=== PATIENT | female | born 1930 | race Asian ===

== ENCOUNTER 2019-04-26 00:06 | Outpatient (CLI) | payer MEDICARE | END 2019-04-26 00:07 | disposition critical access hospital (66) | LOC: EMS 00:06 | PROVIDERS: ATTEND Surgery | DX: R56.9 Unspecified convulsions (principal) | CPT/HCPCS: A0425; A0429 ==

== ENCOUNTER 2019-04-26 00:28 | Emergency (ER) | payer MEDICARE ==
--- NOTE | 2019-04-26 00:36 | ED Physician Documentation ---
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 less than 1 hour ago, her grandson woke to strange noises from patient (patient is sleeping in same room as grandson), and grandson turned on light and found patient unconscious, eyes rolled back, and coordinated shaking of all limbs. this lasted approximately 30 seconds, followed by several minutes of unresponsiveness and appearance of being in deep sleep with sonorous respirations (per patients son who was now in room with patient). 911 called and by the time they arrived, patient had gradually returned to baseline level of consciousness. son says patient might have had slurred speech and left facial droop immediately after the seizure, but he isnt confident these were present, says it might have simply been due to positioning and lighting in the room. medics similarly report possibly seeing left facial droop or asymmetry, but unclear if it was truly present or due to positioning. 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 denies: Generalized weakness, Numbness, Headache PD PAST MEDICAL HISTORY - Past Medical History Past Medical History: No - Past Surgical History Past Surgical History: No - Allergies Allergies/Adverse Reactions: Allergies Allergy/AdvReac Type Severity Reaction Status Date / Time Unable to Assess Allergy Verified 04/26/19 00:38 - Social History Does the pt smoke?: No Does the pt drink ETOH?: No PD ED PE NORMAL - Vitals Vital signs reviewed: Yes - General General: Alert and oriented X 3, No acute distress, Well developed/nourished, Other (does not speak kiswahili; family translating with obvious fluency) - HEENT HEENT: Atraumatic, PERRL, EOMI, Moist mucous membranes, Pharynx benign (there is dried blood on lips without apparent source (no lip , tognue, or intraoral bite/abrasion visualized)), Other (right eye opacification s/o cataract. 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, No motor deficit (5/5 bilateral slabber, dorsi/plantarflexion, holds up each limb (independently tested) for 5 seconds (lower) and 10 seconds (upper) without drift), No sensory deficit, Normal speech Eye Opening: Spontaneous Motor: Obeys Commands Verbal: Oriented GCS Score: 15 - Psych Psych: Normal mood, Normal affect Results - Vitals Vitals: Oxygen O2 Source Room air - EKG (time done) No standard instances Rate: Rate (enter#) (81) Rhythm: NSR Brownell: LAD Intervals: Normal MI QRS: Normal Ischemia: Normal ST segments, Q waves (III, aVF) - Labs Labs: Laboratory Tests 04/26/19 04/26/19 04/26/19 01:00 01:25 01:25 WBC 10.0 RBC 4.38 Hgb 13.5 Hct 40.4 MCV 92.2 MCH 30.8 MCHC 33.4 RDW 13.7 Plt Count 258 MPV 10.0 Neut # (Auto) 6.4 Lymph # (Auto) 2.6 Garvin # (Auto) 0.8 Eos # (Auto) 0.2 Baso # (Auto) 0.0 Absolute Nucleated RBC 0.00 Nucleated RBC % 0.0 PT 11.8 INR 1.0 APTT 30.3 Sodium Potassium Chloride Carbon Dioxide Anion Gap BUN Creatinine Estimated GFR (MDRD) Glucose POC Whole Bld Glucose Calcium Total Bilirubin AST ALT Alkaline Phosphatase Troponin I Total Protein Albumin Globulin Albumin/Globulin Ratio Lipase Urine Color YELLOW Urine Clarity CLEAR Urine pH 5.5 Ur Specific [place] 1.020 Urine Protein NEGATIVE Urine Glucose (UA) NEGATIVE Urine Ketones NEGATIVE Urine Occult Blood MODERATE H Urine Nitrite NEGATIVE Urine Bilirubin NEGATIVE Urine Urobilinogen 0.2 (NORMAL) Ur Leukocyte Esterase NEGATIVE Urine RBC 0-5 Urine WBC 0-3 Ur Squamous Epith Cells FEW Squamous Urine Bacteria Few Ur Microscopic Review INDICATED Urine Culture Comments NOT INDICATED 04/26/19 04/26/19 04/26/19 01:25 01:25 01:32 WBC RBC Hgb Hct MCV MCH MCHC RDW Plt Count MPV Neut # (Auto) Lymph # (Auto) Garvin # (Auto) Eos # (Auto) Baso # (Auto) Absolute Nucleated RBC Nucleated RBC % PT INR APTT Sodium 139 Potassium 4.0 Chloride 102 Carbon Dioxide 24 Anion Gap 13.0 BUN 19 Creatinine 0.7 Estimated GFR (MDRD) 79 L Glucose 133 H POC Whole Bld Glucose 131 H Calcium 9.4 Total Bilirubin 0.4 AST 20 ALT 14 Alkaline Phosphatase 83 Troponin I 0.04 Total Protein 7.8 Albumin 3.6 Globulin 4.2 Albumin/Globulin Ratio 0.9 L Lipase 30 Urine Color Urine Clarity Urine pH Ur Specific [place] Urine Protein Urine Glucose (UA) Urine Ketones Urine Occult Blood Urine Nitrite Urine Bilirubin Urine Urobilinogen Ur Leukocyte Esterase Urine RBC Urine WBC Ur Squamous Epith Cells Urine Bacteria Ur Microscopic Review Urine Culture Comments - Rads (name of study) [facility] Radiology: Prelim report reviewed, See rad report PD MEDICAL DECISION MAKING - ED course Complexity details: reviewed results, re-evaluated patient, considered differential, d/w patient, d/w family ED course: remained asymptomatic and in NAD during ED stay. HPI is c/w new-onset GTC seizure; no evidence of CVA, and questionable slurred speech and/or facial droop sound more likely to have been result if post-ictal state rather than ischemia. she will need further testing such as MRI, EEG, and possibly CVA/TIA-oriented testing such as carotid doppler studies. provided she has no further events or concerning signs or symptoms, this can take place in outpatient setting. Departure - Departure Disposition: 01 Home, Self Care Clinical Impression: Seizure Condition: Good Health Concerns: seizure Plan of Treatment: follow up with neurology for further testing. Care Goals: further testing to determine possible cause of seizure and determine whether medication is necessary to prevent other seizures Assessment: see diagnosis Instructions: ED Seizure New Onset Unk Cause Comments: Follow up with a neurologist. You might need to be seen by your primary care physician for a referral. Contact your primary care provider's office to ask about referral to neurology Discharge Date/Time: 04/26/19 02:45
[2019-04-26 01:05] LABS: BILIRUBIN,URINE NEGATIVE (NEGATIVE); GLUCOSE, URINE (UA) NEGATIVE (NEGATIVE); KETONES,URINE (UA) NEGATIVE (NEGATIVE); LEUKOCYTE ESTERASE, URINE NEGATIVE (NEGATIVE); NITRITE,URINE NEGATIVE (NEGATIVE); OCCULT BLOOD,URINE MODERATE (NEGATIVE); PH,URINE 5.5 PH (5.0-7.5); PROTEIN,URINE NEGATIVE (NEGATIVE); UROBILINOGEN,URINE 0.2 (NORMAL) E.U./dL (NORMAL)
[2019-04-26 01:07] LABS: CLARITY,URINE CLEAR (CLEAR)
[2019-04-26 01:12] LABS: RBC,URINE 0-5 /HPF (0-5)
[2019-04-26 01:13] LABS: BACTERIA,URINE Few /HPF (None Seen); SQUAMOUS EPITHELIAL CELL,UR FEW Squamous (<= Few)
--- NOTE | 2019-04-26 01:20 | CT Report ---
Reason: seizure Procedure Date: 04/26/2019 Accession Number: [id number] / [id number] Procedure: CT - HEAD WO CPT Code: FULL RESULT: EXAM: CT HEAD EXAM DATE: 04/26/2019 12:59 AM. CLINICAL HISTORY: Seizure. COMPARISON: None. TECHNIQUE: Multiaxial CT images were obtained from the foramen magnum to the vertex. Reformats: Sagittal and coronal. IV contrast: None. In accordance with CT protocol optimization, one or more of the following dose reduction techniques were utilized for this exam: automated exposure control, adjustment of mA and/or KV based on patient size, or use of iterative reconstructive technique. FINDINGS: Parenchyma: No intraparenchymal hemorrhage. No evidence of mass, midline shift, or CT findings of infarction. Mayorga-white differentiation is distinct. Extraaxial Spaces: Normal for age. No subdural or epidural collections identified. Ventricles: Normal in size and position. Sinuses and Orbits: Imaged paranasal sinuses, orbits, and mastoids show no significant abnormality. Bones: No evidence of fracture or calvarial defect. Other: Mastoid air cells on the left are poorly developed and not aerated. Middle ear ossicles appear absent. IMPRESSION: No acute or focal intracranial abnormality. [facility]
[2019-04-26 01:41] LABS: BASOPHILS % (AUTO) 0.3 %; EOSINOPHILS # (AUTO) 0.2 10^3/uL (0.0-0.7); EOSINOPHILS % (AUTO) 2.1 %; HGB - HEMOGLOBIN 13.5 g/dL (12.0-16.0); LYMPHOCYTES # (AUTO) 2.6 10^3/uL (1.5-3.5); LYMPHOCYTES % (AUTO) 25.9 %; MEAN CORPUSCULAR HEMOGLOBIN 30.8 pg (27.0-31.0); MEAN CORPUSCULAR HGB CONC 33.4 g/dL (32.0-36.0); MEAN CORPUSCULAR VOLUME 92.2 fL (81.0-99.0); MONOCYTES # (AUTO) 0.8 10^3/uL (0.0-1.0); NEUTROPHILS # (AUTO) 6.4 10^3/uL (1.5-6.6); NEUTROPHILS % (AUTO) 63.4 %; PLT - PLATELET COUNT 258 10^3/uL (130-450); RED BLOOD COUNT 4.38 10^6/uL (4.20-5.40); RED CELL DISTRIBUTION WIDTH 13.7 % (12.0-15.0)
[2019-04-26 02:01] LABS: PT - PROTHROMBIN TIME 11.8 secs (9.9-12.6)
[2019-04-26 02:03] LABS: ALBUMIN 3.6 g/dL (3.2-5.5); ALBUMIN/GLOBULIN RATIO 0.9 (1.0-2.2); BILIRUBIN,TOTAL 0.4 mg/dL (0.2-1.0); CALCIUM 9.4 mg/dL (8.5-10.3); CREATININE 0.7 mg/dL (0.4-1.0); TOTAL PROTEIN 7.8 g/dL (6.7-8.2)
[2019-04-26 02:08] LABS: PARTIAL THROMBOPLASTIN TIME 30.3 secs (24.9-33.3)
[2019-04-26 03:19] VITALS: BP 141/73
== END 2019-04-26 02:45 | disposition home or self-care (01) ==
LOC: ED 00:28
DX: R56.9 Unspecified convulsions (principal); R53.1 Weakness; I49.1 Atrial premature depolarization
CPT/HCPCS: 36415; 70450; 80053; 81001; 81003; 83690; 84484; 85025; 85610; 85730; 87086; 93005; 99283; 99284